=== PATIENT | male | born 1990 | race Caucasian/White ===

== ENCOUNTER 2021-08-11 22:22 | Emergency (ER) | payer OTHER ==
[~2021-08-11] VITALS: Ht 180.3 cm; Wt 143.8 kg
[2021-08-11 22:28] VITALS: BP 130/91
[2021-08-11] MEDS ORDERED: ADDERALL XR 2525 MG PO (22:33)
[2021-08-11] MEDS ORDERED: SERTRALINE HCL100 MG PO (22:33)
[2021-08-11] MEDS ORDERED: BUSPAR30 MG PO (22:34)
[2021-08-11] MEDS ORDERED: ZESTORETIC 20-1 EAC3 PO (22:36)
[2021-08-11] MEDS ORDERED: ZYRTEC10 M5 PO (22:37)
[2021-08-11] MEDS ORDERED: SINGULAIR 10 MG10 M1 PO (22:37)
[2021-08-11] MEDS ORDERED: AUGMENTIN 875-1 EACH PO (22:45)
== END 2021-08-11 23:08 | disposition home or self-care (01) ==
LOC: ER 22:22
DX: S41.151A Open bite of right upper arm, initial encounter (principal); I10 Essential (primary) hypertension; F32.9 Major depressive disorder, single episode, unspecified; F41.9 Anxiety disorder, unspecified; Z79.899 Other long term (current) drug therapy; Z88.8 Allergy status to other drugs, medicaments and biological substances; W50.3XXA Accidental bite by another person, initial encounter; Y93.89 Activity, other specified; Y92.89 Other specified places as the place of occurrence of the external cause; Y99.8 Other external cause status